=== PATIENT | male | born 1945 | race Two or more races ===

== ENCOUNTER 2024-10-14 10:26 | Emergency (ER) | payer OTHER ==
[~2024-10-14] VITALS: Ht 172.7 cm; Wt 81.6 kg
[2024-10-14] MEDS ORDERED: TAMS0.4C PO (11:56)
[2024-10-14] MEDS ORDERED: PHENERGAN25 MG PO (11:57)
[2024-10-14 16:04] LABS: HEMATOCRIT 41.9 % (39.0-48.0); HEMOGLOBIN 14.4 g/dL (13-16.00); MEAN CELL VOLUME 92.9 fL (80.0-100.00); MEAN CORPUSCULAR HEMOGLOBIN 31.9 pg (27.00-32.0); MEAN CORPUSCULAR HGB CONC 34.4 g/dl (32.0-36.0); PLATELET COUNT 149 K/uL (150-450); RED BLOOD COUNT 4.51 M/uL (4.00-6.00); RED CELL DISTRIBUTION WIDTH 13.5 % (11.5-14.5)
[2024-10-14 16:14] LABS: CALCIUM 9.8 mg/dL (8.5-10.1); CREATININE SERUM 0.87 mg/dL (0.70-1.30); GFR 85.09; POTASSIUM 4.75 mEq/L (3.5-5.1)
[2024-10-14] MEDS ORDERED: GILTUSS COUGH-118 M1 PO (18:20)
== END 2024-10-14 18:37 | disposition home or self-care (01) ==
LOC: ER 10:29
PROVIDERS: General Practice
DX: B34.9 Viral infection, unspecified (principal); Z20.822 Contact with and (suspected) exposure to COVID-19